=== PATIENT | male | born 1960 | race Caucasian/White ===

== ENCOUNTER 2017-10-18 05:52 | Day surgery (SDC) | payer BC ==
[2017-10-08 08:17] VITALS: BMI 27.0
[~2017-10-18] VITALS: Ht 182.9 cm; Wt 90.9 kg
[2017-10-18] MEDS ORDERED: LACTATED RINGER'S 1000ML 1,000 ML IV SCH (06:00)
[2017-10-18 06:19] VITALS: BP 133/83; PULSE 66; TEMP 36.4; O2SAT 96; Ht 182.9 cm; Wt 90.9 kg
[2017-10-18] MEDS ORDERED: MIDAZOLAM HCL 1 MG/ML 2ML VIAL ONE ×2 (06:57→07:47)
[2017-10-18] MEDS ORDERED: FENTANYL CITRATE INJ 50 MCG/1 ML 2 ML VIAL ONE (06:58)
[2017-10-18] MEDS ORDERED: PROPOFOL IV EMULSION 10 MG/ML 20 ML VIAL IV ONE (07:04)
--- NOTE | 2017-10-18 07:38 | History and Physical ---
History & Physical Date Oct 18, 2017. Chief Complaint Neck and arm pain History of Present Illness The patient is a 57 year old male with complaints of neck and arm pain Past Medical/Surgical History Medical Problems: (1) Cervical stenosis of spinal canal Additional History Hepatic Disease: No Endocrine Disorder: No Kidney Disease: No Hypertension: No Heart Disease: No Bleeding Tendencies: No Infectious Diseases: No Allergies Coded Allergies: No Known Allergies (Unverified , 10/18/17) Home Medications No Active Prescriptions or Reported Meds Physical Examination Skin: warm/dry, no rash Eyes: normal inspection, EOMI, sclerae normal ENT: normal ENT inspection, pharynx normal Head: normocephalic, atraumatic Neck: supple, no adenopathy, trachea midline Respiratory/Chest: lungs clear, normal breath sounds, no respiratory distress Cardiovascular: regular rate, rhythm, no edema, no murmur Abdomen / GI: normal bowel sounds, non tender Back: normal inspection Extremities: normal inspection, normal range of motion Neurologic/Psych: no motor/sensory deficits, alert, normal reflexes, oriented x 3 Diagnosis Cervical spinal stenosis Plan of Treatment MRI cervical spine under sedation
[2017-10-18] MEDS ORDERED: EpHEDrine SULFATE INJ 50 MG/ML AMP IV PRN (08:15)
[2017-10-18] MEDS ORDERED: ATROPINE SULFATE 0.1 MG/ML 5ML SYR IV PRN (08:15)
[2017-10-18 08:41] VITALS: BP 134/82; PULSE 62; TEMP 36.3; O2SAT 96
[2017-10-18 09:04] VITALS: BP 146/90; PULSE 65; TEMP 36.1; O2SAT 95
--- NOTE | 2017-10-18 09:27 | DIAGNOSTIC IMAGING REPORT ---
CERVICAL WITHOUT CONTRAST HISTORY: 57 years-old Male CERVICAL SPINE SPONDYLOSIS WITH MYELOPATHY. W/ANESTHESIA. No acute trauma reported. Prior discectomy with anterior interbody fusion at C4-C5, C5-C6 and C6-C7. COMPARISON: Cervical spine radiographs 08/10/2016 TECHNIQUE: Multiplanar multisequence MRI of the cervical spine was obtained without contrast. FINDINGS: Several of the axial sequences are motion degraded. The large [id number] lumber material handler localizer images demonstrate no gross abnormality of the head, neck or imaged chest. Signal within the cord is within normal limits. Posterior fossa structures are unremarkable. No fracture, subluxation, marrow replacing process or focal bone marrow edema. Paraspinal soft tissues are unremarkable. Postoperative changes compatible with discectomy and anterior interbody fusion again seen at the C4-C5, C5-C6 and C6-C7 levels. Corpectomy changes at C6 better evaluated on comparison spot fluoroscopic images. C2-C3: Mild intervertebral disc space narrowing with mild facet arthrosis and broad-based posterior disc osteophyte complex. There is mild left foraminal narrowing. Central canal and right foramen are patent. C3-C4: Mild intervertebral disc space narrowing with posterior spondylitic spurring and mild facet arthrosis. Mild left foraminal narrowing. The right foramen and central canal are patent. C4-C5: Fusion changes at this level with mild facet arthrosis. Central canal and foramen appear patent. C5-C6: Fusion changes at this level. Posterior spondylitic spurring and mild facet arthrosis. No significant central canal or foraminal narrowing. C6-C7: Fusion changes at this level as well. Mild right greater than left facet arthrosis with mild associated posterior osteophytic spurring. No significant central canal stenosis. There is however mild to moderate bilateral foraminal narrowing. C7-T1: Mild facet arthrosis without significant intervertebral disc space narrowing. Central canal and foramen are patent. IMPRESSION: 1. Postoperative changes of the cervical spine compatible with prior discectomy and anterior interbody fusion at C4-C5, C5-C6 and C6-C7. No acute fracture, subluxation or focal bone marrow edema. 2. Mild facet arthrosis with posterior osteophytic spurring at C6-C7 results in mild to moderate bilateral foraminal narrowing. 3. At C3-C4, mild intervertebral disc space narrowing with posterior spondylitic spurring and mild facet arthrosis causes mild left foraminal stenosis. The above report was generated using voice recognition software. It may contain grammatical, syntax or spelling errors. Electronically signed by: Brigido Perez M.D. 10/18/2017 9:25 AM Dictated Date/Time: 10/18/2017 9:07 AM
--- NOTE | 2017-10-18 12:11 | Anesthesiology Progress Note ---
Anesthesia Post Op Note Date & Time Oct 18, 2017 at 12:11 Vital Signs Pain Intensity: 7 Vital Signs Past 12 Hours Date Time Temp Pulse Resp B/P (MAP) Pulse Ox O2 Delivery O2 Flow Rate FiO2 10/18/17 09:04 36.1 65 18 146/90 95 Room Air 10/18/17 08:41 36.3 62 16 134/82 96 Room Air 10/18/17 06:19 36.4 66 18 133/83 (100) 96 Room Air Notes Mental Status: alert / awake / arousable, participated in evaluation Pt Amnestic to Procedure: Yes Nausea / Vomiting: adequately controlled Pain: adequately controlled Airway Patency, RR, SpO2: stable & adequate BP & HR: stable & adequate Hydration State: stable & adequate Anesthetic Complications: no major complications apparent
== END 2017-10-18 09:20 | disposition home or self-care (01) ==
LOC: C.ACU 05:52
PROVIDERS: ATTEND Orthopaedic Surgery Orthopaedic Surgery of the Spine
DX: M47.892 Other spondylosis, cervical region (principal); M48.02 Spinal stenosis, cervical region